=== PATIENT | female | born 1990 | race Caucasian/White ===

== ENCOUNTER 2024-05-21 02:09 | Emergency (ER) | payer MEDICAID ==
[~2024-05-21] VITALS: Ht 167.6 cm; Wt 95.3 kg
[2024-05-21] MEDS ORDERED: diphenhydrAMINE HCL 50 MG/ML VIAL ONE (03:20)
[2024-05-21] MEDS ORDERED: FAMOTIDINE/PF INJ 20 MG/2 ML VIAL IV ONE (03:20)
[2024-05-21] MEDS ORDERED: methylPREDNISolone SOD SUCC 125 MG/2ML VIAL ONE (03:20)
[2024-05-21 03:23] LABS: BASOPHILS % (AUTO) 0.3 % (0.0-2.0); EOSINOPHILS # (AUTO) 0.2 K/uL (0.0-0.7); EOSINOPHILS % (AUTO) 1.2 % (0.0-6.0); HEMATOCRIT 41 % (33-45); HEMOGLOBIN 13.7 g/dL (11.5-14.8); LYMPHOCYTES # (AUTO) 1.2 K/uL (0.8-4.8); LYMPHOCYTES % (AUTO) 9.7 % (20.0-44.0); MEAN CORPUSCULAR HEMOGLOBIN 32 PG (26.0-33.0); MEAN CORPUSCULAR HGB CONC 34 g/dl (31.0-36.0); MEAN CORPUSCULAR VOLUME 94 fL (82-100); MONOCYTES # (AUTO) 0.8 K/uL (0.1-1.30); MONOCYTES % (AUTO) 6.7 % (2.0-12.0); NEUTROPHILS # (AUTO) 10.1 K/uL (1.8-8.9); NEUTROPHILS % (AUTO) 82.1 % (43.0-81.0); PLATELET COUNT (AUTO) 305 K/uL (150-450); RED BLOOD CELL COUNT(AUTO) 4.34 MIL/uL (4.0-5.2); RED CELL DISTRIBUTION WIDTH 13.7 % (11.5-15.0); WHITE BLOOD COUNT (AUTO) 12.3 K/uL (4.3-11.0)
[2024-05-21] MEDS: methylPREDNISolone SOD SUCC 125 MG/2ML VIAL IV ONE (03:23)
[2024-05-21] MEDS: FAMOTIDINE/PF INJ 20 MG/2 ML VIAL IV ONE (03:23)
[2024-05-21] MEDS: diphenhydrAMINE HCL 50 MG/ML VIAL IV ONE (03:23)
[2024-05-21 03:39] LABS: CALCIUM, SERUM 8.6 mg/dL (8.5-10.1); CREATININE 0.7 mg/dL (0.6-1.3); POTASSIUM 3.4 mmol/L (3.5-5.1)
[2024-05-21 03:44] LABS: ALBUMIN 3.5 g/dL (3.4-5.0); BILIRUBIN,TOTAL 0.6 mg/dL (0.2-1.0); TOTAL PROTEIN, SERUM 7.2 g/dL (6.4-8.2)
[2024-05-21] MEDS: POTASSIUM CHLORIDE 10 MEQ TABLET.SA PO ONE (04:17)
[2024-05-21] MEDS ORDERED: POTASSIUM CHLORIDE 10 MEQ TABLET.SA ONE (04:17)
[2024-05-21] MEDS ORDERED: PRED50TA PO (04:24)
[2024-05-21] MEDS ORDERED: LORA10CA PO (04:24)
[2024-05-21 04:36] VITALS: BP 122/80; TEMP 98.8; O2SAT 98
== END 2024-05-21 04:36 | disposition home or self-care (01) ==
LOC: ER 02:13
DX: L25.9 Unspecified contact dermatitis, unspecified cause (principal); H57.89 Other specified disorders of eye and adnexa; Z79.52 Long term (current) use of systemic steroids
CPT/HCPCS: 99284; 96374; 96375; 85025; 36415; 80053; 80320; J1200; J3490; J2919; G0480

== ENCOUNTER 2024-09-27 03:12 | Emergency (ER) | payer MEDICAID, OTHER ==
[~2024-09-27] VITALS: Ht 154.9 cm; Wt 63.5 kg
[~2024-09-27 03:12] MED LIST: LORA10CA PO; PRED50TA PO
[2024-09-27 03:32] VITALS: BP 114/87; TEMP 98.1; O2SAT 98
[2024-09-27] MEDS ORDERED: PRED20TA PO (04:13)
[2024-09-27] MEDS ORDERED: predniSONE 20 MG TABLET ONE (04:16)
[2024-09-27] MEDS: predniSONE 50 MG TABLET PO ONE (04:19)
== END 2024-09-27 04:23 | disposition home or self-care (01) ==
LOC: ER 04:03
DX: L25.9 Unspecified contact dermatitis, unspecified cause (principal); H57.89 Other specified disorders of eye and adnexa; Z79.52 Long term (current) use of systemic steroids
CPT/HCPCS: 99283; J7512